=== PATIENT | male | born 1980 | race Caucasian/White ===

== ENCOUNTER 2020-07-28 05:31 | Observation (INO) | payer SELFPAY ==
[~2020-07-28] VITALS: Ht 177.8 cm; Wt 106.1 kg
[2020-07-28] VITALS (13 sets, daily range): BP systolic 141–177; BP diastolic 82–105
[~2020-07-28 05:31] MED LIST: OMEPRAZOLE40 M1 ORAL
[2020-07-28] MEDS ORDERED: LOSARTAN POTASS25 MG ORAL (06:03)
[2020-07-28] MEDS ORDERED: HYDROcodone/Acetamin 10/325 tab ORAL PRN (06:15)
[2020-07-28] MEDS ORDERED: HYDROmorphone 1mg/ml Carpuject SUBQ PRN (06:15)
[2020-07-28] MEDS ORDERED: Albuterol/Ipratropium 3ml neb HHN PRN (06:15)
[2020-07-28] MEDS ORDERED: Bacitracin 50000 Units Vial ONE (06:29)
[2020-07-28] MEDS ORDERED: Bupivacaine 0.5% Inj 30 ml vial INJ ONE (06:29)
[2020-07-28] MEDS ORDERED: Thrombin 5000 units TOPIC ONE (06:29)
[2020-07-28] MEDS ORDERED: Gelfoam Size TOPIC ONE (06:29)
[2020-07-28] MEDS ORDERED: Chloraseptic Spray 20mL Bottle ORAL PRN ×2 (06:30→11:15)
--- NOTE | 2020-07-28 06:48 | Anethesia Preoperative Eval ---
Anesthesia Pre-op PMH/ROS General Date of Evaluation: Jul 28, 2020 Time of Evaluation: 07:11 Anesthesiologist: Hayder ASA Score: ASA 3 Mallampati Score Class I : Soft palate, uvula, fauces, pillars visible Class II: Soft palate, uvula, fauces visible Class III: Soft palate, base of uvula visible Class IV: Only hard plate visible Mallampati Classification: Class II Surgeon: Wendy Diagnosis: Neck Pain Surgical Procedure: ACDF C5-6, C6-7 Anesthesia History: none Family History: no anesthesia problems Allergies: Coded Allergies: No Known Allergies (Unverified , 07/28/20) Medications: see eMAR Patient NPO?: Yes Past Medical History Cardiovascular: Reports: HTN Pulmonary: Reports: JADIEL Gastrointestinal/Genitourinary: Reports: GERD Other: obesity - BMI 36 Anesthesia Pre-op Phys. Exam Physician Exam Last Vital Signs Date Time Temp Pulse Resp B/P (MAP) Pulse Ox O2 Delivery O2 Flow Rate FiO2 07/28/20 06:06 Room Air 07/28/20 06:01 97.0 67 18 141/84 (103) 98 Constitutional: NAD Neurologic: CN 2-12 intact Cardiovascular: RRR Respiratory: CTA Gastrointestinal: S/NT/ND Airway Exam Mallampati Score: Class II MO: full ROM: limited Teeth: missing, intact Anesthesia Pre-op A/P Risk Assessment & Plan Assessment: ASA 3 Plan: GA, SED, GlideScope Status Change Before Surgery: No Pre-Antibiotics Dru Grams Ancef IV Given Within 1 Hr of Incision: Yes Time Given: 07:31 Zia Singletary MD Jul 28, 2020 06:47
[2020-07-28] MEDS ORDERED: Rocuronium Bromide 50mg/5ml Inj IV ONE (06:51)
[2020-07-28] MEDS ORDERED: Lidocaine 1% MPF 10mg/ml 5ml ONE ×2 (06:57→10:21)
[2020-07-28] MEDS ORDERED: fentaNYL 100 mcg/2 mL IV ONE ×2 (06:58→08:36)
[2020-07-28] MEDS ORDERED: ceFAZolin sod 1 GM in NS 55 ML IVPB ONE (07:00)
[2020-07-28] MEDS ORDERED: Metoclopramide 10mg/2ml Inj IVP PRN (07:00)
[2020-07-28] MEDS ORDERED: DiphenhydrAMINE 50mg/ml Inj IVP PRN (07:00)
[2020-07-28] MEDS ORDERED: HYDROcodone/Acetamin 5/325 tab ORAL PRN (07:00)
[2020-07-28] MEDS ORDERED: LR 1000ml ONE (07:00)
[2020-07-28] MEDS ORDERED: Hydromorphone 0.5mg/0.5ml inj IVP PRN (07:00)
[2020-07-28] MEDS ORDERED: Midazolam 2mg/2ml Inj IVP PRN (07:00)
[2020-07-28] MEDS ORDERED: propofoL 1,000mg/100ml IV ONE (07:00)
[2020-07-28] MEDS ORDERED: Ketorolac 30mg Inj IV PRN ×2 (07:00)
[2020-07-28] MEDS ORDERED: Neostigmine 1mg/ml 10ml Inj ONE (07:00)
[2020-07-28] MEDS ORDERED: LR 1000ml 1,000 ML IVLG SCH (07:00)
[2020-07-28] MEDS ORDERED: HYDROcodone/Acetamin 7.5/325 tab ORAL PRN (07:00)
[2020-07-28] MEDS ORDERED: Sterile Water Irrig 1000ml IRRIG ONE (07:00)
[2020-07-28] MEDS ORDERED: fentaNYL 100 mcg/2 mL IV PRN (07:00)
[2020-07-28] MEDS ORDERED: Meperidine 25mg/1ml Inj (FOR RIGORS ONLY) IV PRN (07:00)
[2020-07-28] MEDS ORDERED: LORazepam Inj 2mg/ml 1ml IV PRN (07:00)
[2020-07-28] MEDS ORDERED: Acetaminophen (Non formulary) 100 ML IV ONE (07:00)
[2020-07-28] MEDS ORDERED: oxyCODONE HCL/Acetaminophen 5/325mg ORAL PRN (07:00)
[2020-07-28] MEDS ORDERED: Atropine Sulfate 0.4mg/ml inj IVP PRN (07:00)
[2020-07-28] MEDS ORDERED: Labetalol 5mg/ml 20ml vial IV ONE (07:00)
[2020-07-28] MEDS ORDERED: NS Irrig 1000ml ONE (07:00)
[2020-07-28] MEDS ORDERED: Lidocaine 1% Plain 30 ml INJ ONE ×2 (07:01→08:53)
--- NOTE | 2020-07-28 07:20 | 48 Hour Post Anesthesia Eval ---
Post Anesthesia Evaluation Procedure: ACDF C5-6, C6-7 Date of Evaluation: Jul 28, 2020 Time of Evaluation: 13:46 Blood Pressure Systolic: 152 0: 89 Pulse Rate: 64 Respiratory Rate: 18 Temperature (Fahrenheit): 98 O2 Sat by Pulse Oximetry: 99 Airway: patent Nausea: No Vomiting: No Pain Intensity: 2 Hydration Status: adequate Cardiopulmonary Status: Stable Mental Status/LOC: patient returned to baseline Follow-up Care/Observations: 0 Post-Anesthesia Complications: 0 Follow-up care needed: N/A Zia Singletary MD Jul 28, 2020 07:20
--- NOTE | 2020-07-28 07:20 | Immediate Post-Op Evaluation ---
Immediate Post-Op Evalulation Immediate Post-Op Evalulation Procedure: ACDF C5-6, C6-7 Date of Evaluation: Jul 28, 2020 Time of Evaluation: 11:27 IV Fluids: 1000 LR Blood Products: 0 Estimated Blood Loss: 50 Urinary Output: 0 Blood Pressure Systolic: 153 Blood Pressure Diastolic: 105 Pulse Rate: 68 Respiratory Rate: 16 O2 Sat by Pulse Oximetry: 99 Temperature (Fahrenheit): 97.1 Pain Score (1-10): 2 Nausea: No Vomiting: No Complications 0 Patient Status: awake, reacts, patent, extubated, none Hydration Status: adequate Dru Grams Ancef IV Given Within 1 Hr of Incision: Yes Time Given: 07:31 Zia Singletary MD Jul 28, 2020 07:20
[2020-07-28] MEDS ORDERED: Glycopyrrolate 0.2mg/ml 1ml Vial ONE (10:24)
--- NOTE | 2020-07-28 10:53 | Brief Operative Note ---
Immediate Post Operative Note Operative Note Pre-op Diagnosis: Cervical HNP radiculopathy Procedure: ACDF C5-C6, C6-C7. Anterior Plate C5-6-7 Post-op Diagnosis: same as pre-op Findings: consistent w/pre-op dx studies Surgeon: Wendy CHU Labor Operator: Ramona MORRISSEY Anesthesiologist: Hayder CHU Anesthesia: general Specimen: yes Complications: none Condition: stable Fluids: anesthesia Estimated Blood Loss: minimal Drains: none Implant(s) used?: Yes Miguel Angel Nguyen MD Jul 28, 2020 10:53
[2020-07-28] MEDS ORDERED: Naloxone 0.4mg/ml Inj IVP PRN (11:00)
[2020-07-28] MEDS: Hydromorphone 0.5mg/0.5ml inj IVP PRN ×2 (11:37→17:56)
[2020-07-28] MEDS ORDERED: Chloraseptic Spray 20mL Bottle ORAL SCH (12:00)
[2020-07-28] MEDS ORDERED: Dronabinol 2.5mg Cap ORAL SCH (12:00)
--- NOTE | 2020-07-28 12:47 | NUR ---
NURSE NOTES: Patient arrived to via patient bed in stable condition. No reports of pain or discomfort, no reports of numbness or tingling. Right arm 20 g is intact and running tko. Anterior neck dressing is clean and dry. SCDs are on DAYNE lower extremities. Bed is low and locked, side rails up x2, call light is within reach.
--- NOTE | 2020-07-28 14:00 | NUR ---
NURSE NOTES: Dr. Lugo ordered that the patient is ready for DC when he is able to walk to the bathroom and void.
[2020-07-28] MEDS ORDERED: D5 1/2NS 1,000 ML IV SCH (14:30)
[2020-07-28] MEDS ORDERED: ceFAZolin sod 1 GM in D5W 55 ML IV SCH (15:30)
--- NOTE | 2020-07-28 17:15 | Diagnostic Imaging Report ---
INDICATION: Pain, intraoperative TECHNIQUE: Intraoperative imaging Fluoroscopy time: 23.6 seconds Total dose: 0.10507 mGym2 Total number of images: 4 COMPARISON: None FINDINGS: Intraoperative images document surgical tool projected anterior to C6-7. Subsequent images document anterior fusion hardware placement in the lower cervical spine IMPRESSION: Intraoperative imaging, as described
--- NOTE | 2020-07-28 17:45 | NUR ---
NURSE NOTES: Patient safely discharged from to home via private vehicle. Patient belongings list verified and signed, information packet provided, patient aware of MD follow up. Per Dr. Lugo patient has RX at home. IV and ID wristband were removed, cervical precaution body mechanics and diet explained.
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
--- NOTE | 2020-07-31 07:59 | Operative Note - Dictated ---
DATE OF OPERATION: 07/28/2020 SURGEON: Miguel Angel Nguyen, PhD, MD GRAVEL SCREENER: YUNI Ramirez ANESTHESIA: General with intubation. ANESTHESIOLOGIST: Zia Singletary MD ESTIMATED BLOOD LOSS: Minimal. COMPLICATIONS: None. POSTOP CONDITION: Good/stable. SPECIMEN: Disc fragments to pathology, C5-C6 and C6-C7. OPERATIVE PROCEDURE: 1. ACDF with nerve root decompression at C5-C6, C6-C7. 2. Anterior internal fixation C5-C6-C7. 3. SSEP monitoring. 4. Passive EMG monitoring. 5. High-powered microscopic dissection. The patient's body habitus greater than 95th percentile for height. ADMITTING/PREOPERATIVE DIAGNOSES: Cervical herniated nucleus pulposus, neck pain, radiculopathy with neurologic deficit. DESCRIPTION OF PROCEDURE: The patient was brought to the operating room and in the supine position, general anesthesia with intubation was induced. IV antibiotics, IV Decadron were administered 30 minutes prior to incision time. After appropriate position in the supine position, a cross-table image was obtained with a spinal needle taped to the lateral aspect of the neck (without penetration of dermis/epidermis) and a cross-table image was obtained demonstrating the correct level for further incision placement. Level was appropriately marked with sterile marking pen. Needle marker was removed. Anterior cervical spine was sterilely prepped and draped free in usual sterile fashion. Transverse incision was sharply placed in the dermis and epidermis. Electrocautery dissection was carried through the subcutaneous tissue to the level of the platysmas muscle. This was identified, isolated, and transected in line with the incision. Blunt dissection was carried through the deep cervical and pretracheal fascia through the medial aspect of the left sternocleidomastoid muscle. Dissection was carried bluntly medial to the carotid sheath and to the interval between the right and left longus colli muscles and anterior cervical spine. Under high-power magnification and direct observation, a spinal needle was bent at 90-degree angles so as to avoid penetration into the disk space greater than 3 mm. It was placed into the disk space. A cross-table image was obtained under sterile conditions demonstrating the correct level for further dissection. At the interval, small annulotomy was performed anteriorly with diskectomy not exceeding 2 mm. Sterile marking pen utilized for position marking. Longus colli muscles over the appropriate intervals were dissected right and left of midline not exceeding 3 mm from the medial to lateral extent. Retractors were placed at the C6-C7 interval. Cross-table imaging confirmation utilized during the procedure. Traction pins were placed 14 mm in depth into the C6 and C7 vertebral bodies under high-power magnification. Retraction placed. Anterior osteophytes resected with Midas Prosper bur dissection, anterior superior C7 and anterior inferior C6. Diskectomy was performed to the posterior longitudinal ligament. Endplates were appropriately denuded of cartilaginous covering. The posterior longitudinal ligament was resected. A large rent was noted minimal asymmetric, left of midline with a herniated nucleus pulposus resected. No dural tears or leaks occurred at anytime during the procedure. SSEP monitoring remained stable as did no passive EMG noted. Trials with were utilized for determination of the appropriate interbody titanium graft. The graft was selected, packed with Bio-4 osteopromotive material and local autograft. Tamped into position under high-power magnification. Fluoroscopic imaging was utilized throughout the procedure. The graft position is excellent. Graft was countersunk 1 mm from the anterior aspect of the vertebral body. Once again, all imaging studies were utilized for determination of depth position. High-power magnification utilized. The patient is stable. The pins were removed and the pin hole into the C7 vertebral body was cauterized with application of sterile wax. Attention was turned to the C5-C6 interval with placement of retractors at that level in the longus colli muscles. Right large lateral osteophyte extended lateral was resected over the anterior aspect of the vertebra, anterior inferior C5, anterior superior C6 vertebral bodies. The pin hole that had been utilized previously in the C6 vertebral body was recannulated with a 14 mm screw pin. Additional pin was placed into the C5 vertebral body followed with traction at the interval. SSEP monitoring and the EMGs remained normal at all times. Severe collapse of the disc space is noted. Anterior osteophytes resected followed with diskectomy to the posterior longitudinal ligament. Endplate cartilaginous caps were removed with a combination of curettage and Midas Prosper bur dissection. The posterior longitudinal ligament was resected. The posterior osteophyte resected. Of note was that there was ossification right of midline of the anterior osteophyte/disc to the dura. Dissection was carried peripherally. The ossified posterior longitudinal ligament is floating at all peripheral positions. Further dissection to detach from the dura was deemed unacceptable due to the ossification through the dura. No dural tears or leaks occurred anytime during the procedure. Monitoring remained stable at all times. The appropriate dimension graft was determined with the utilization trials with trials having to avoid penetration posterior to the anterior vertebral body cortices. Appropriate graft was selected and packed with Bio-4 osteopromotive material in combination with autograft. The graft was tamped into position. Radiographic analysis intraoperatively revealed correct depth and position. The traction pins were removed. The holes for retraction pins were cauterized with application of sterile wax under high-power magnification. A 10-pound of traction throughout the procedure was removed. The patient remained stable. The appropriately dimension plate was selected and placed into position with cephalad and caudad positions relative to the vertebral bodies determined with the cross-table imaging. The right lateral osteophyte as previously noted with C5-C6 was not further resected due to its necessitating additional dissection of the longus colli muscles. Plate position was minimally asymmetric to left as noted in the AP and lateral planes. 14 mm screws were utilized into the C6 vertebral body with the 16 mm screws placed into the C5 and C7 vertebral body in a compressive fashion. Screw length relative to the vertebral bodies determined with fluoroscopic imaging. Screws were locked into position. Purchase was excellent. Interval was copiously irrigated with antibiotic-containing saline. Retractors were removed. The exploration under high-power magnification did not reveal excoriation or laceration of any vital structures. SSEP monitoring remained stable. EMGs remained negative. FloSeal was applied. Reapproximation of the platysmas muscle was undertaken under high-power magnification. Dermis/epidermis was reapproximated subcuticular closure followed by surgical strips maintaining alignment. Sterile bandage was applied maintained in place with tape. The patient was awakened and extubated in the operating room and transported to postop recovery in good/stable condition. Miguel Angel Nguyen M.D. DR: GRACIELA JOB#: [id number] CC:
--- NOTE | 2020-08-01 14:11 | Pre-Procedure Note/Attestation ---
Pre-Procedure Note/Attestation Complete Prior to Procedure Planned Procedure: not applicable Procedure Narrative: ACDF C5-6, C6-C7. Anterior internal plate fixation. Indications for Procedure Pre-Operative Diagnosis: Cervical HNP radiculopathy Attestation I attest that I discussed the nature of the procedure; its benefits; risks and complications; and alternatives (and the risks and benefits of such alternatives), prior to the procedure, with the patient (or the patient's legal guest experience representative). I attest that, if there was a reasonable possibility of needing a blood transfusion, the patient (or the patient's legal guest experience representative) was given the [facility] standardized written summary, pursuant to the [place] Blood Safety Act ([place] Health and Safety Code # 1645, as amended). I attest that I re-evaluated the patient just prior to the surgery and that the re has been no change in the patient's H&P, except as documented below: Miguel Angel Nguyen MD Aug 01, 2020 14:11
== END 2020-07-28 17:50 | disposition home or self-care (01) ==
LOC: SUR 05:31 → EDSTATUS 07:00 → 4E 14:17
DX: M50.122 Cervical disc disorder at C5-C6 level with radiculopathy (principal); E66.9 Obesity, unspecified; Z87.891 Personal history of nicotine dependence; I10 Essential (primary) hypertension; G47.33 Obstructive sleep apnea (adult) (pediatric); K21.9 Gastro-esophageal reflux disease without esophagitis; Z68.33 Body mass index [BMI] 33.0-33.9, adult
CPT/HCPCS: 20930; 20936; 22551; 22552; 36415; 72040; 76000; 86850; 86900; 86901; 94003; C1713; J0131; J0360; J0690; J1100; J1170; J1200; J1885; J2001; J2250; J2405; J2704; J2710; J3010; J7120; U0004; 94150; J2180